=== PATIENT | female | born 1965 | race African-American/Black ===

== ENCOUNTER 2017-12-12 11:50 | Outpatient (CLI) | payer OTHER ==
--- NOTE | 2017-12-12 12:23 | Mammography Report ---
Screening mammogram: Baseline mammogram. Routine views demonstrates a partially circumscribed nodular density in the subdural lateral left breast seen on both projections. There is a circumscribed area of inhomogeneous density noted in the medial left breast seen only in the CC projection. There is a 2 cm sized irregular shaped area of asymmetry in the superolateral right breast and a smaller lobulated area asymmetry in the more anterior portion of the upper outer right breast. The remainder the breast pattern is that of heterogeneous fibroglandular densities in a generally symmetric an unremarkable pattern. Benign-appearing focal left breast calcifications. CAD used. Impression: Bilateral asymmetries. Recommendation: Additional spot compression imaging bilaterally and bilateral breast ultrasound. BI-RADS CATEGORY: 0 = Needs additional imaging evaluation ACR BI-RADS MAMMOGRAPHIC CODES: 0 = Needs additional imaging evaluation; 1 = Negative; 2 = Benign; 3 = Probably benign; 4 = Suspicious; 5 = Malignant; 6 = Known biopsy-proven malignancy COMMENT: 1. Dense breast tissue, i.e., adenosis, fibrocystic changes, etc., may obscure an underlying neoplasm. 2. Approximately 10% of cancers are not detected with mammography. 3. A negative mammography report should not delay biopsy if a clinically suspicious mass is present.
== END 2017-12-12 11:51 | disposition home or self-care (01) ==
LOC: SPVWC 11:50
PROVIDERS: ATTEND Family Medicine
DX: Z12.31 Encounter for screening mammogram for malignant neoplasm of breast (principal)
CPT/HCPCS: 77067

== ENCOUNTER 2017-12-29 12:06 | Outpatient (CLI) | payer OTHER ==
--- NOTE | 2017-12-29 15:37 | Ultrasound Report ---
BILATERAL DIGITAL DIAGNOSTIC MAMMOGRAM and BILATERAL BREAST ULTRASOUND: 12/29/17 12:06:00 CLINICAL: Recalled for bilateral asymmetries. COMPARISON:12/12/17 screening FINDINGS: Bilateral spot compression views were performed and demonstrate persistent bilateral upper outer masses. Ultrasound of the right breast (including all four quadrants and the retroareolar area) was performed and demonstrated a single mass at 9 o'clock 9 cm from nipple. The mass is solid heterogeneous and hypoechoic with a lobular contour measuring 2.2 x 1.0 x 1.7 cm. It correlates with the larger mammographic mass. No other mass of the right breast is identified. Ultrasound of the left breast (including all four quadrants and the retroareolar area) was performed and demonstrated a single solid heterogeneous hypoechoic mass at 2:45 o'clock 6 cm from the nipple. It measures 1.5 x 1.0 x 0.9 cm and correlates with the mammographic mass. No other mass of the left breast is identified. A benign cyst at 3 o'clock 6 cm from the nipple measures 4 x 3 x 3 mm. IMPRESSION: Bilateral solid breast masses. 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 BI-RADS CATEGORY: 4A--Mildly Suspicious RECOMMENDATION: Bilateral ultrasound guided needle core breast biopsy to confirm the density. I attempted to explain the findings to the patient and her but was unable to adequately communicate the findings and recommendation for biopsies because of a language barrier. ACR BI-RADS MAMMOGRAPHIC CODES: 0 = Needs additional imaging evaluation; 1 = Negative; 2 = Benign; 3 = Probably benign; 4 = Suspicious; 5 = Malignant; 6 = Known biopsy-proven malignancy COMMENT: 1. Dense breast tissue, i.e., adenosis, fibrocystic changes, etc., may obscure an underlying neoplasm. 2. Approximately 10% of cancers are not detected with mammography. 3. A negative mammography report should not delay biopsy if a clinically suspicious mass is present. COMMENT: Patient follow-up letters are generated via our [employer] application.
== END 2017-12-29 12:07 | disposition home or self-care (01) ==
LOC: SPVWC 12:06
PROVIDERS: ATTEND Family Medicine
DX: N63.10 Unspecified lump in the right breast, unspecified quadrant (principal); N63.20 Unspecified lump in the left breast, unspecified quadrant; R92.8 Other abnormal and inconclusive findings on diagnostic imaging of breast
CPT/HCPCS: 77066

== ENCOUNTER 2018-01-17 09:52 | Outpatient (CLI) | payer OTHER ==
--- NOTE | 2018-01-17 11:13 | Mammography Report ---
right DIGITAL DIAGNOSTIC MAMMOGRAM: 01/17/18 09:52:00 CLINICAL: For clip placement immediately status post ultrasound biopsy. COMPARISON:12/29/17 FINDINGS: A biopsy clip is now identified within the mass at 9 o'clock. IMPRESSION: Concordant clip placement status post ultrasound biopsy. BI-RADS CATEGORY: 4--Suspicious Pathology pending.
--- NOTE | 2018-01-17 11:45 | Ultrasound Report ---
VACUUM ASSISTED ULTRASOUND GUIDED NEEDLE CORE BIOPSY WITH CLIP PLACEMENT RIGHT BREAST: 01/17/18 09:52:00 CLINICAL: Bilateral breast masses. COMPARISON :Every second thousand eighteen FINDINGS: The procedure was explained to the patient and informed consent was obtained through a phone roll forger. Ultrasound demonstrated the previously described mass at 9 o'clock. The skin was prepped with Betadine and anesthetized with 1% lidocaine. Vacuum-assisted needle core biopsy was performed through a small dermatotomy using ultrasound guidance, 2% lidocaine with epinephrine for deep anesthesia and in 8-gauge Mammotome biopsy probe. 6 cores were obtained and placed in formalin. A localizer clip was deployed within the mass. Hemostasis was achieved with minimal pressure and a sterile dressing was applied. The patient tolerated the procedure well and there were no apparent complications. A two view mammogram demonstrated concordant clip placement. The patient left the department in good condition and was given instructions for wound care and follow up. IMPRESSION: Uncomplicated vacuum-assisted ultrasound core biopsy with clip placement right breast.
== END 2018-01-17 09:53 | disposition home or self-care (01) ==
LOC: SPVWC 09:52
PROVIDERS: ATTEND Family Medicine
DX: D24.1 Benign neoplasm of right breast (principal)
CPT/HCPCS: 19083; 77065; 88305; A4648

== ENCOUNTER 2018-01-24 09:22 | Outpatient (CLI) | payer OTHER ==
--- NOTE | 2018-01-24 15:21 | Ultrasound Report ---
ULTRASOUND GUIDED NEEDLE CORE BIOPSY LEFT BREAST WITH CLIP PLACEMENT: 01/24/18 CLINICAL: Left breast mass at 2:30 o'clock to 3 o'clock. COMPARISON :12/29/17 FINDINGS: The procedure was explained to the patient and informed consent was obtained. Ultrasound demonstrated the previously described solid oval heterogeneous mass. I marked the breast with a felt tip marker and a time out was called. The skin was prepped with Betadine and anesthetized with 1% lidocaine. Needle core biopsy was performed through a tiny dermatotomy using ultrasound guidance, 2% lidocaine with epinephrine for deep anesthesia and a 14-gauge Achieve biopsy device. 4 cores were obtained and placed in formalin. A clip was deployed within the mass. The patient tolerated the procedure well and there were no apparent complications. Hemostasis was achieved with minimal pressure and a sterile dressing was applied. A post biopsy mammogram was not performed. She left the department in good condition and was given instructions for wound care and followup. IMPRESSION: Uncomplicated ultrasound guided needle core biopsy with clip placement left breast. Recommend return for a post biopsy left mammogram.
--- NOTE | 2018-01-24 15:42 | Mammography Report ---
LEFT DIGITAL DIAGNOSTIC MAMMOGRAM: 01/24/18 CLINICAL: For clip placement after ultrasound guided needle biopsy on the same day. COMPARISON:12/29/17 FINDINGS: A biopsy clip is now identified within the upper outer mass. IMPRESSION: Concordant clip placement status post ultrasound biopsy. BI-RADS CATEGORY: 4--Suspicious Pathology pending.
== END 2018-01-24 09:23 | disposition home or self-care (01) ==
LOC: SPVWC 09:22
PROVIDERS: ATTEND Family Medicine
DX: N63.20 Unspecified lump in the left breast, unspecified quadrant (principal); R92.8 Other abnormal and inconclusive findings on diagnostic imaging of breast
CPT/HCPCS: 88305

== ENCOUNTER 2020-02-11 13:48 | Outpatient (CLI) | payer OTHER ==
--- NOTE | 2020-02-11 15:10 | Mammography Report ---
DIGITAL SCREENING MAMMOGRAM WITH CAD, 02/11/2020 INDICATION: Routine screening mammography. History of bilateral benign breast biopsies. TECHNIQUE: Digital bilateral 2D mammography was obtained in the craniocaudal and mediolateral obliq ue projections. This examination was interpreted with the benefit of Computer-Aided Detection analysi s. COMPARISON: 12/29/2017 and 12/12/2017 mammograms FINDINGS: Breast Density: The breasts are heterogeneously dense, which may obscure small masses. There is no evidence of new mass, suspicious calcifications or architectural distortion in either gus ast. Bilateral upper outer circumscribed masses with clips are not significantly changed. IMPRESSION: No mammographic evidence of malignancy. Follow up recommendation: Routine yearly BI-RADS Category 2: Benign. A "normal" or negative report should not discourage follow up or biopsy of a clinically significant f inding. A written summary of these findings will be mailed to the patient. The patient will be entered into a mammography reporting system which will generate a reminder letter for the patient's next appointmen t at the appropriate interval. The [employer] recommends yearly mammograms starting at age 40 and continuing as l jah as a woman is in good health. Breast MRI is recommended for women with an approximate 20-25% or greater lifetime risk of breast cancer, including women with a strong family history of breast or ova benjamin cancer or who have been treated for Hodgkin's disease. Signer Name: Luís Reeves MD Signed: 02/11/2020 3:05 PM Workstation Name: [id number]
== END 2020-02-11 13:49 | disposition home or self-care (01) ==
LOC: SPVWC 13:48
PROVIDERS: ATTEND Family Medicine
DX: Z12.31 Encounter for screening mammogram for malignant neoplasm of breast (principal)
CPT/HCPCS: 77067